=== PATIENT | male | born 1935 | race Caucasian/White ===

== ENCOUNTER 2017-12-01 07:01 | Emergency (ER) | payer MEDICARE ==
[2017-12-01 07:17] VITALS: BP 146/75
--- NOTE | 2017-12-01 07:25 | UC ---
Skin Complaint HPI - HPI Summary HPI Summary: The patient is an 82-year-old male that presents here with a rapidly spreading very pruritic rash. The rash started about 2 days ago. Has recently removing some harrison from a tree trunk. The rash started in both antecubital fossa. There is rapidly spread to the forearms and hands as well as the chest. It has started to blister but has not started to ooze. Denies any diabetes and states he has not a prediabetic. - History of Current Complaint Chief Complaint: UCSkin Time Seen by Provider: 12/01/17 07:20 Stated Complaint: RASH Hx Obtained From: Patient Onset/Duration: Gradual Onset, Lasting Days Timing: Constant Onset Severity: Mild Current Severity: Moderate Pain Intensity: 0 Pain Scale Used: 0-10 Numeric Location: Hand (Right), Hand (Left), Other - both forearms and neck/chest Character: Pruritus, Redness, Raised Aggravating Factor(s): Nothing Alleviating Factor(s): Nothing Associated Signs & Symptoms: Positive: Rash - Allergy/Home Medications Allergies/Adverse Reactions: Allergies Allergy/AdvReac Type Severity Reaction Status Date / Time No Known Allergies Allergy Verified 11/11/15 11:31 Home Medications: Home Medications diphenhydrAMINE HCl [Benadryl Allergy 25 MG CAP] 12/01/17 [History] Review of Systems Constitutional: Negative Skin: Rash Eyes: Negative ENT: Negative Respiratory: Negative Cardiovascular: Negative Gastrointestinal: Negative Genitourinary: Negative Motor: Negative Neurovascular: Negative Musculoskeletal: Negative Neurological: Negative Psychological: Negative Is Patient Immunocompromised?: No All Other Systems Reviewed And Are Negative: Yes PMH/Surg Hx/FS Hx/Imm Hx Previously Healthy: Yes Endocrine History: Dyslipidemia Cardiovascular History: Hypertension - Surgical History Surgical History: Yes Surgery Procedure, Year, and Place: inguinal hernia, bilat cataracts - Family History Known Family History: Positive: Hypertension Family History: NON CONTRIBUTORY - Social History Alcohol Use: Daily Substance Use Type: None Smoking Status (MU): Never Smoked Tobacco Physical Exam Triage Information Reviewed: Yes Appearance: Well-Appearing, No Pain Distress, Well-Nourished Vital Signs: Initial Vital Signs Temp 98.9 F 12/01/17 07:11 Pulse 75 12/01/17 07:11 Resp 16 12/01/17 07:11 BP 146/75 07/03/18 07:11 Pulse Ox 99 12/01/17 07:11 Eyes: Positive: Conjunctiva Clear ENT: Positive: Hearing grossly normal. Negative: Nasal congestion, Nasal drainage, Trismus, Muffled voice, Hoarse voice Neck: Positive: Supple, Nontender, No Lymphadenopathy Respiratory: Positive: Lungs clear, Normal breath sounds, No respiratory distress Cardiovascular: Positive: RRR, No Murmur Neurological Exam: Normal Neurological: Positive: Alert Psychological Exam: Normal Skin Exam: Other - Red raised rash with some vesicle formation often in a linear array on both arms from just above the antecubital fossa down to the hands. Rash is also starting to develop on the upper anterior neck and chest. Course/Dx - Diagnoses Provider Diagnoses: contact dermatitis Discharge - Sign-Out/Discharge Documenting (check all that apply): Discharge/Admit/Transfer - Discharge Plan Condition: Stable Disposition: HOME Patient Education Materials: Poison Yuliya (ED) Referrals: Thaddeus Bowser MD [Primary Care Provider] - If Needed Additional Instructions: you were given a steroid shot today cool compresses with epsum salts will help calomine lotion
[2017-12-01] MEDS ORDERED: Triamcinolone Acetonide* 40 MG/ML 1 ML VIAL IM ONE (07:28)
== END 2017-12-01 07:52 | disposition home or self-care (01) ==
LOC: UCEAST 07:01
DX: L25.9 Unspecified contact dermatitis, unspecified cause (principal); I10 Essential (primary) hypertension
CPT/HCPCS: 96372; 99201; G0463; J3301

== ENCOUNTER 2018-10-16 13:35 | Emergency (ER) | payer MEDICARE, OTHER ==
[2018-10-16 13:47] VITALS: BP 155/98
--- NOTE | 2018-10-16 14:02 | UC ---
Throat Pain/Nasal Brendan HPI - HPI Summary HPI Summary: patient recently travelled from [place] to [place] and then to [place]. 4 days ago he started to have itchy nose, PND and "swollen" eyes and clear eye tearing. tried a couple doses of OTC sinus medication which seemed to help a bit. actually feels better today, but not normal yet, diff sleeping d/t PND in throat - History of Current Complaint Chief Complaint: UCRespiratory Stated Complaint: SINUS CONGESTION, AND SORE THROAT Time Seen by Provider: 10/16/18 13:41 Hx Obtained From: Patient Onset/Duration: Gradual Onset Pain Intensity: 0 Cough: None Associated Signs & Symptoms: Positive: Nasal Discharge. Negative: Hoarseness, Sinus Discomfort, Fever, Rash Related History: Seasonal Allergies - Allergies/Home Medications Allergies/Adverse Reactions: Allergies Allergy/AdvReac Type Severity Reaction Status Date / Time No Known Allergies Allergy Verified 10/16/18 13:41 Home Medications: Home Medications Dutasteride 1 tab DAILY 10/16/18 [History Confirmed 10/16/18] PMH/Surg Hx/FS Hx/Imm Hx Previously Healthy: Yes GI/ History: Other - enlarged prostate - Surgical History Surgical History: Yes Surgery Procedure, Year, and Place: inguinal hernia, bilat cataracts - Family History Known Family History: Positive: Hypertension Family History: NON CONTRIBUTORY - Social History Occupation: Retired Lives: With Family Alcohol Use: Daily Substance Use Type: None Smoking Status (MU): Never Smoked Tobacco Review of Systems All Other Systems Reviewed And Are Negative: Yes Constitutional: Negative: Fever, Chills, Fatigue Skin: Positive: Negative Eyes: Positive: Drainage - clear, Other - "sags under eyes". Negative: Photophobia ENT: Positive: Other - PND when lying down Respiratory: Negative: Shortness Of Breath, Cough Cardiovascular: Positive: Negative. Negative: Palpitations, Chest Pain Neurological: Positive: Negative. Negative: Headache Psychological: Positive: Negative Is Patient Immunocompromised?: No Physical Exam Triage Information Reviewed: Yes Appearance: Well-Appearing, No Pain Distress, Well-Nourished Vital Signs: Initial Vital Signs Temp 98.1 F 10/16/18 13:42 Pulse 70 10/16/18 13:42 Resp 16 10/16/18 13:42 BP 155/98 10/16/18 13:42 Pulse Ox 99 10/16/18 13:42 Vital Signs Reviewed: Yes Eyes: Positive: Conjunctiva Clear ENT: Positive: Pharynx normal, Nasal congestion, TMs normal. Negative: Hoarse voice, Sinus tenderness Neck exam: Normal Respiratory Exam: Normal Respiratory: Positive: Lungs clear, Normal breath sounds Cardiovascular Exam: Normal Cardiovascular: Positive: RRR, No Murmur Musculoskeletal Exam: Normal Musculoskeletal: Positive: Strength Intact, ROM Intact Neurological Exam: Normal Psychological Exam: Normal Skin Exam: Normal Skin: Negative: Rashes Throat Pain/Nasal Course/Dx - Differential Dx/Diagnosis Differential Diagnosis/HQI/PQRI: Sinusitis, URI, Other - seasonal allergies Provider Diagnosis: Seasonal allergic rhinitis Discharge - Sign-Out/Discharge Documenting (check all that apply): Patient Departure All imaging exams completed and their final reports reviewed: No Studies - Discharge Plan Condition: Good Disposition: HOME Patient Education Materials: Allergic Rhinitis (ED) Referrals: Thaddeus Bowser MD [Primary Care Provider] - 2 Days (recheck Blood pressure and allergy symptoms) Additional Instructions: Use over the counter: Claritin 10mg a day Flonase nasal spray as directed drink plenty of fluids and return if symptoms worsen or you develop a fever - Billing Disposition and Condition Condition: GOOD Disposition: Home
== END 2018-10-16 14:10 | disposition home or self-care (01) ==
LOC: UCEAST 13:35
DX: J30.2 Other seasonal allergic rhinitis (principal); N40.0 Benign prostatic hyperplasia without lower urinary tract symptoms
CPT/HCPCS: 99211; G0463